=== PATIENT | female | born 1995 | race Caucasian/White ===

== ENCOUNTER 2020-01-16 02:00 | Emergency (ER) | payer OTHER ==
[~2020-01-16] VITALS: Ht 170.2 cm; Wt 59.0 kg
--- NOTE | 2020-01-16 02:13 | Emergency Room Report ---
History of Present Illness General Chief Complaint: Behavioral Complaint Source: Patient, EMS, [employer] Enforcement Present Illness HPI Patient is a 24-year-old female past medical history of depression, bipolar disorder or borderline personality disorder, and suicidal ideation with past psychiatric hospitalization in [place] who was brought in by EMS and [employer] for suicidal ideation. Patient states that she does not want to be here anymore. She does not have a specific plan. EMS was called by the patient's sister. Patient states that whenever she takes Klonopin it makes her feel like this. Patient admits to other soft drug use. She says that she has no fever or chills. She denies any headache, chest pain, shortness of breath, abdominal pain, nausea or vomiting. Allergies: Coded Allergies: No Known Allergies (Unverified , 01/16/20) COVID-19 Screening Contact w/high risk pt: No Recent Travel to affected area: No Experienced COVID-19 symptoms?: No COVID-19 Testing performed VALVE MECH[employer]IC: No Patient History Social History: Denies: smoking, alcohol use, drug use Reviewed Nursing Documentation: PMH: Agreed; PSxH: Agreed Review of Systems All Other Systems: negative except mentioned in HPI Physical Exam Vital Signs Date Time Temp Pulse Resp B/P (MAP) Pulse Ox O2 Delivery O2 Flow Rate FiO2 01/16/20 02:05 97.5 70 16 136/90 (105) 98 Room Air Sp02 EP Interpretation: reviewed, normal General Appearance: no apparent distress, alert, GCS 15, non-toxic Head: normocephalic, atraumatic Eyes: bilateral eye normal inspection, bilateral eye PERRL ENT: hearing grossly normal, normal pharynx, no angioedema, normal voice Neck: full range of motion, supple/symm/no masses Respiratory: chest non-tender, lungs clear, normal breath sounds, speaking full sentences Cardiovascular #1: regular rate, rhythm, no edema Gastrointestinal: normal bowel sounds, non tender, soft, non-distended, no guarding, no rebound Rectal: deferred Musculoskeletal: back normal, normal range of motion, gait/station normal, non- tender Neurologic: alert, motor strength/tone normal, oriented x3, sensory intact, responsive, speech normal Psychiatric: anxious, other - SI with no plan Skin: no rash Lymphatic: no adenopathy Medical Decision Making Diagnostic Impression: Primary Impression: Suicidal thoughts Additional Impression: Alcohol intoxication ER Course Patient has been medically cleared. Patient was placed on 5150 by [employer]. Patient will require psychiatric evaluation. Patient signed out to at 6am. Last Vital Signs Date Time Temp Pulse Resp B/P (MAP) Pulse Ox O2 Delivery O2 Flow Rate FiO2 01/16/20 02:05 97.5 70 16 136/90 (105) 98 Room Air Signed Out To: Dr. Vo at 6am Marilin Pat M.D. Jan 16, 2020 02:13
[2020-01-16 02:14] VITALS: BP 136/90
--- NOTE | 2020-01-16 02:14 | NUR ---
ED Nurse Note: pt chata frm home co SI with no plan to hurt self. Pt stated to sister that she wants to because she does not deserve to live. ERMD at bedside. VSS no ss of distress noted.
--- NOTE | 2020-01-16 02:52 | NUR ---
ED Nurse Note: all blood work and urine sent to lab
--- NOTE | 2020-01-16 02:54 | NUR ---
ED Nurse Note: pt requested warm blankets and stated that she is going to sleep. will continue to monitor.
--- NOTE | 2020-01-16 03:00 | NUR ---
ED Nurse Note: Blood work and urine sent to lab
[2020-01-16 03:30] LABS: ANION GAP 12 mmol/L (5-15); BLOOD UREA NITROGEN 6 mg/dL (7-18); CALCIUM 8.9 MG/DL (8.5-10.1); CARBON DIOXIDE 26 MMOL/L (21-32); CHLORIDE 107 MMOL/L (98-107); CREATININE 0.8 MG/DL (0.55-1.30); SODIUM 145 MMOL/L (136-145)
[2020-01-16 03:34] LABS: ALANINE AMINOTRANSFERASE 30 U/L (12-78); ALBUMIN 4.7 G/DL (3.4-5.0); ALBUMIN/GLOBULIN RATIO 1.3 (1.0-2.7); ALKALINE PHOSPHATASE 76 U/L (46-116); ASPARTATE AMINO TRANSFERASE 20 U/L (15-37); BILIRUBIN,TOTAL 0.2 MG/DL (0.2-1.0)
[2020-01-16 03:38] LABS: APPEARANCE,URINE CLEAR; BILIRUBIN, URINE NEGATIVE (NEGATIVE); COLOR,URINE PALE YELLOW; GLUCOSE, URINE (UA) NEGATIVE (NEGATIVE); KETONES,URINE NEGATIVE (NEGATIVE); LEUKOCYTE ESTERASE ,URINE 1+ (NEGATIVE); NITRITE,URINE NEGATIVE (NEGATIVE); PH,URINE 5 (4.5-8.0); PROTEIN,URINE 3+ (NEGATIVE); UROBILINOGEN,URINE NORMAL MG/DL (0.0-1.0)
[2020-01-16 03:52] LABS: BASOPHILS % (AUTO) 1.2 % (0.0-2.0); EOSINOPHILS % (AUTO) 1.6 % (0.0-3.0); HEMATOCRIT 41.5 % (37.0-47.0); HEMOGLOBIN 12.9 G/DL (12.0-16.0); LYMPHOCYTES % (AUTO) 43.1 % (20.0-45.0); MEAN CORPUSCULAR VOLUME 95 FL (80-99); NEUTROPHILS % (AUTO) 48.2 % (45.0-75.0); PLATELET COUNT 214 K/UL (150-450); RED BLOOD COUNT 4.35 M/UL (4.20-5.40); RED CELL DISTRIBUTION WIDTH 14.3 % (11.6-14.8); WHITE BLOOD COUNT 6.8 K/UL (4.8-10.8)
--- NOTE | 2020-01-16 04:00 | NUR ---
ED Nurse Note: all medications administered, pt tolerated well no ss of distress noted.
[2020-01-16 04:30] VITALS: BP 132/76
--- NOTE | 2020-01-16 05:30 | NUR ---
ED Nurse Note: Pt resting in bed, VSS no ss of distress noted. Will continue to monitor.
--- NOTE | 2020-01-16 07:09 | NUR ---
HAND-OFF: Report given to SHELBIE Rm.
--- NOTE | 2020-01-16 08:43 | NUR ---
ED Nurse Note:pt. is awake ,had her breakfast, blood alcohol was sent to labs, sitter is at the bed side, pt. is compliant no SI/HI was voiced
[2020-01-16 10:17] VITALS: BP 129/79
[2020-01-16] MEDS ORDERED: LAMICTAL25 MG ORAL (11:19)
[2020-01-16] MEDS ORDERED: BUPROPION XL300 MG ORAL (11:19)
[2020-01-16] MEDS ORDERED: LATUDA20 MG PO (11:19)
[2020-01-16] MEDS ORDERED: BuPROPion SR 150mg tab ORAL ONE (11:30)
[2020-01-16 14:26] VITALS: BP 108/71
[2020-01-16] MEDS ORDERED: clonazePAM 0.5mg tab ORAL ONE (16:45)
[2020-01-16 17:00] VITALS: BP 109/73
--- NOTE | 2020-01-16 18:24 | NUR ---
ED Nurse Note:called [facility] with report and spoke with Tracee.
--- NOTE | 2020-01-16 19:05 | NUR ---
ED Nurse Note: Report received from SHELBIE Rm. Pt is resting in bed, NAD. Pt is calm and cooperative. Sitter at bedside with suicide precuations in place.
--- NOTE | 2020-01-16 21:00 | NUR ---
ED Nurse Note: Report given to shift manager RN at facility.
[2020-01-16 21:10] VITALS: BP 113/70
--- NOTE | 2020-01-16 21:10 | NUR ---
ED Nurse Note: Pt is medically cleared and stable for transfer to psych facility at ths time per ERMD. Pt is aaox4, breathing normal, no cough, SOB or fever noted. Pt being transported by [facility] BLS unit [id number] via gurney. Pt IV was removed. Pt belongings sent with EMS crew and report given to crew. Pt VSS/NAD and pt is cooperative. Physical copy of [id number] psych hold sent with EMS crew.
== END 2020-01-16 21:10 ==
LOC: EDBD 02:00 → EMR 02:32
DX: R45.851 Suicidal ideations (principal); F10.129 Alcohol abuse with intoxication, unspecified; F31.9 Bipolar disorder, unspecified; F32.9 Major depressive disorder, single episode, unspecified
CPT/HCPCS: 36415; 80053; 80307; 81003; 81025; 83735; 85025; 96360; 96361; 99285; G0480; J7030